=== PATIENT | female | born 1950 | race Caucasian/White ===

== ENCOUNTER 2018-07-25 08:24 | Day surgery (SDC) | payer MEDICARE, OTHER, SELFPAY ==
--- NOTE | 2018-07-25 | AXNB_PTH ---
PATIENT: DAVIS NIXON LOC: [facility] [place] U#:[id number] AGE/SX: 67/F ROOM: RE07/25/[address]: Dr. Helen Cervantes MD : 1950 BED: DIS: 07/25/2018 SPEC #: [id number] RECD: 07/25/18 12:05 STATUS: JAMMIE LUL #: [id number] MARILIN: 07/25/18 00:[address]: Helen Cervantes DEPT: SURGICAL PATHOLOGY RECD BY: Jayda Jacob ENTERED: 07/25/18 12:33 SP TYPE: AX NODE BX OTHR DR: Dr. Marla Ling MD Tissues: A - Axillary lymph node, NOS B - Right breast, NOS Procedures: Frozen Section (charge) Surgery Specimen Level IV Frozen (no charge) HEADER OPERATION: Right breast biopsy after wire localization, right axillary biopsy PRE-OP DIAGNOSIS: Right upper outer quadrant breast carcinoma TISSUE SUBMITTED: A - Right axillary sentinel lymph node for frozen section, B - Right breast lump to mammography first then pathology to identify margins, one long suture - lateral, one short suture - superior, two short sutures - posterior FROZEN SECTION DIAGNOSIS A. Right axillary sentinel lymph nodes, biopsy: Three out of three lymph nodes negative for carcinoma. AM:sesar 07/25/18 Case has been reviewed in consultation with Dr. Del Valle who concurs with the above diagnosis. IDC:SJ MICROSCOPIC DIAGNOSIS A. Right axillary sentinel lymph nodes, biopsy: Three out of three lymph nodes negative for carcinoma. See comment. B. Right breast, lumpectomy: Invasive ductal carcinoma. See cancer checklist below. AM:essar 07/28/18 COMMENT A. Immunohistochemistry ([id number]) supports the above diagnosis. B. INVASIVE BREAST CANCER SUMMARY: Specimen: Partial breast Procedure: Excision with wire guidance Specimen integrity: Single intact specimen. Specimen size: 6 x 5 x 2.5 cm Specimen laterality: Right breast Invasive tumor size: 7 x 6 x 5 mm Tumor focality: Single focus of invasive carcinoma Macroscopic and Microscopic extent of tumor: Skin: Not present Nipple: Not present Skeletal muscle: Not present Histologic type of invasive carcinoma: Invasive ductal carcinoma Histologic Grade ([place] grade): Glandular/tubular differentiation score: 1 Nuclear pleomorphism score: 3 Mitotic count score: 1 Overall grade: Grade 1 (total score of 5) Margins: Uninvolved by invasive carcinoma. Distance from closest (superior) margin: 6 mm Lymph-Vascular invasion: Not identified Dermal lymph-vascular invasion: Not applicable Ductal carcinoma in situ (DCIS): Not present Lobular carcinoma in situ (LCIS): Not present Lymph nodes: Number of sentinel lymph nodes examined - 3 Total number of lymph nodes examined (sentinel and nonsentinel) - 3 No evidence of macrometastases, micrometastases or isolated tumor cells. See specimen A Microcalcifications: Present and associated with carcinoma. Treatment effect: Unknown Additional pathologic findings: Changes consistent with previous biopsy, focal intraductal hyperplasia without atypia and mild fibrocystic change. Ancillary studies: Previously performed on same tumor ([id number],[facility]). ER: 90%, moderate to strong OK: 90%, moderate to strong Her2 martinez: Negative (IHC, ERBB2) PATHOLOGIC STAGE: pT1b N0(sn) Mx The above summary is in compliance with [employer] [place] [employer] (CAP) Cancer Protocols Checklist and [place] Joint Committee on Cancer (AJCC), Staging Manual, 8th Ed. Case has been reviewed in consultation with Dr. Del Valle who concurs with the above diagnosis. IDC:SJ MICROSCOPIC DESCRIPTION Slides are reviewed. GROSS DESCRIPTION A - Received fresh for frozen section consultation labeled with the patient's name is a specimen designated right axillary sentinel lymph node. The specimen consists of an irregular fragment of luna-yellow fibrofatty tissue measuring 3 x 2 x 1.2 cm. Dissection reveals three nodules resembling lymph nodes ranging in size from 1.5 to 2.3 cm in greatest dimension. The nodules are submitted in their entirety for frozen section consultation in two blocks as follows: 1 - one lymph node, 2 - two lymph nodes. / AM: 07/25/18 B - Received fresh for OR consultation labeled with the patient's name is a specimen designated right breast lumpectomy. The specimen consists of an irregular fragment of luna-yellow fibrofatty tissue measuring 6 x 5 x 2.5 cm and weighing 34 gm. The specimen contains two metallic wires. The specimen is differentially inked as follows: anterior - yellow, posterior - black, superior - blue, inferior - green, medial - red and lateral - orange. Serial sections reveal a small blood-filled biopsy cavity with surrounding fibrous nodule measuring 7 mm in greatest dimension. The biopsy cavity contains a metallic tracer clip. This nodule is located 6 mm from its closest (superior) margin of excision. The size of the nodule in its proximity to the closest margin is conveyed to the surgeon intraoperatively. The specimen is left for additional fixation. / AM: 07/25/18 Fire Crew Worker sections are submitted in nine cassettes as follows: 1 & 2 - perpendicular inked margins, 3 & 4 - tumor, 5-9 - technical account representative sections of uninvolved breast parenchyma adjacent to and away from tumor. / AM: 07/27/18 TC:0 CPT: 01652 x2, 53179
--- NOTE | 2018-07-25 | IMM_PTH ---
PATIENT: DAVIS NIXON LOC: [facility] [place] U#:[id number] AGE/SX: 67/F ROOM: RE07/25/[address]: Dr. Helen Cervantes MD : 1950 BED: DIS: 07/25/2018 SPEC #: [id number] RECD: 07/28/18 12:37 STATUS: JAMMIE REQ #: [id number] MARILIN: 07/25/18 00:[address]: Helen Cervantes DEPT: IMMUNOHISTOCHEMISTRY RECD BY: Jayda Jacob ENTERED: 07/28/18 12:38 SP TYPE: IMMUNO OTHR DR: Dr. Marla Ling MD Tissues: A - Axillary lymph node, NOS Procedures: CK7 (add) Pankeratin (initial) Pankeratin (add) PHYSICIAN & INSTITUTION [place] [address] SPECIMEN INFORMATION: Tissue Source: A - Right axillary sentinel lymph nodes, biopsy Clinical Info: Right upper outer quadrant breast CA Specimen Number: [id number] A1 & A2 CPT code: 32041, 52546 x3 METHODOLOGY: Deparaffinized sections of prefer/formalin-fixed tissue or PAP/DQ stained slides are incubated with monoclonal/polyclonal antibodies/oligonucleotide probes. Localization is made via biotin free immunoperoxidase method. Appropriate controls are performed and reacted as expected. Results on target cell population are indicated in the following table: RESULTS: ANTIBODY / CLONE RESULT Block A1 AE1-3 (AE1/AE3/PCK26) negative CK7 (OV-TL12/30) negative Block A2 AE1-3 (AE1/AE3/PCK26) negative CK7 (OV-TL12/30) negative These tests were developed and their performance characteristics determined by [facility]. They may not have been cleared or approved by the U.S. Food and Drug Administration. The FDA has determined that such clearance or approval is not necessary. INTERPRETATION: A. Right axillary sentinel lymph nodes, biopsy: Three out of three lymph nodes negative for carcinoma. AM:sesar 07/28/18
[2018-07-25 08:51] VITALS: BP 161/90; PULSE 97; RESP 18; TEMP 36.2; O2SAT 95; BMI 26.2
--- NOTE | 2018-07-25 09:39 | BI_ITS ---
SURGICAL BREAST SPECIMEN RADIOGRAPH CLINICAL: Document presence of tissue clip marker in biopsy specimen. FINDINGS: Specimen shows presence of tissue clip marker. Electronically Signed: Cole Danielle MD at 13:49 EST Tel [phone], Service support , BI/Breast Biopsy Specimen
[2018-07-25] MEDS: Cefazolin 2 GM in 0.9% Normal Saline 100 ML IV (11:20)
--- NOTE | 2018-07-25 11:20 | PCM.IMDPSTOP ---
Immediate Post-Op Note Date of Procedure: 07/25/18 Primary Surgeon/Physician: Helen Cervantes MD laborer golf course: Andree Bazan Pre-Operative Diagnosis: right breast cancer - upper outer quadrant Post-Operative Diagnosis: same Surgery/Procedure Performed:: right breast lumpectomy via wire localization, right axillary sentinel lymph node biopsy via blue dye technique Description of Surgical Findings:: three out three lymph nodes negative, second marker clip not in specimen but radiograph shows not retained FB, tumor in specimen Estimated Blood Loss: 10 ml Specimen's removed: right breast axillary lymph yolanda tissue, right breast lumpectomy Type of Anesthesia:: General ASA Class: ASA2 Mod Systematic Disease - Admit VTE Documentation VTE Present on Admission: Yes VTE Mechan Device Prophylaxis: SCD's
--- NOTE | 2018-07-25 11:22 | PCM.DC.BS ---
Discharge Diet: No Restrictions Discharge Activity: Return to Normal Activity, May not drive while taking narcotic pain medications. Lifting Restrictions: no lifting greater than 5 pounds with right arm until further notice Additional Activity Instructions:: Leave dressings intact. May get wet in shower. Do not soak - no tub baths/swimming. Wear bra during day Allergies/Adverse Reactions: Allergies naproxen [From Aleve] Allergy (Verified 07/20/18 14:03) Swelling Medications to take at Discharge Ascorbic Acid [Vitamin C] 500 mg PO DAILY 07/20/18 Atorvastatin Calcium [Lipitor] 10 mg PO QHS 07/20/18 Calcium Carbonate [Calcium] 600 mg PO DAILY 07/20/18 Cholecalciferol (Vitamin D3) [Vitamin D3] 2 tab PO DAILY 07/20/18 Famotidine [Pepcid AC] 20 mg PO PRN PRN 07/20/18 Multivitamin [Daily Vitamin Formula] 1 each PO DAILY 07/20/18 Primary Care Physician: Marla Ling MD [Primary Care Provider] - Please Follow Up With: Helen Cervantes MD - call When: to be seen in a week, please call for date and time, thank you
--- NOTE | 2018-07-25 11:23 | PCM.OPRPT ---
Report of Operation Date of Procedure: 07/25/18 Pre-Operative Diagnosis: right breast cancer - upper outer quadrant Post-Operative Diagnosis: same - lymph node negative for metastatic disease Surgery/Procedure Performed:: right breast lumpectomy via wire localization, right axillary sentinel lymph node biopsy via blue dye technique Description of Surgical Findings:: three out of three sentinel lymph nodes negative for cancer, specimen mammograms show one of the two clips present in the specimen - pathology reveals 7mm nodule - margins are clear, radiograph reveals no retained clip in the breast wound cavity car dryer: Andree Bazan Type of Anesthesia:: General Anesthesiologist: Chanel Em Specimen's removed: right breast axillary lymph yolanda tissue, right breast lumpectomy Estimated Blood Loss (mL): 10 Fluids Replaced: 1300 ml RL Description of Procedure: After informed consent was given, the patient was brought into the Breast Stereotactic Radiology suite and placed in the prone position on the Zapien stereotactic table. The patient?s right breast was placed in the opening at the head of the table. A manufacturing maintenance technician compression mammogram was then obtained in the lateral view. The marker clip that was previously placed was identified. Stereo pictures of the lesion were then taken for XYZ coordinates. The Kopans needle was then positioned where it would be entering into the patient?s breast. The skin at this site was then cleansed with a surgical skin preparation. The skin and subcutaneous tissues at this site were then infiltrated with 1% xylocaine. The Kopans needle was then positioned into the patient?s breast at the proper coordinates of depth. A manufacturing maintenance technician film was obtained which revealed the wire in proper position. Another marker clip was present and therefore an additional Kopan's needle was placed as above. The patient was then placed in the supine position and the wires were taped into place. A unilateral mammogram in the CC and MLO view were then taken for use in the OR. The patient tolerated this portion of the procedure well and was brought to the AC awaiting surgery in the OR. The patient was then brought to the Operating Room and placed on the operating table in the supine position. Appropriate time out protocol was followed. She was then placed under general anesthesia. 2 cc of lymphozurin diluted 50/50 blue dye was then injected into the periareolar area and around the biopsy cavity with a 25 g needle. Gentle massage was then done for a few minutes. The patient's right chest and neck area was then prepped with a sterile surgical skin preparation and appropriate sterile surgical drapes were placed. A skin incision was made in the inferior portion of the hair bearing area of the right axilla. It was carried through to the subcutaneous tissues using electrocautery. Any hemorrhage was controlled with electrocautery. A Weitlaner retractor was used for increased operative exposure. The blue lymphatic vessels were then followed by blunt dissection until blue colored lymph yolanda tissue was identified. These were from the surrounding tissue by blunt dissection and the vascular pedicles ligated with ligaclips. The lymph tissue was then forwarded to pathology for frozen section. Pathology revealed that three lymph nodes were identifed - all negative for metastatic cancer. Ligaclips were used to ligate the vessels and lymphatics. Jan was applied into the axillary cavity. The deep tissues were approximated with 2-0 vicryl suture. The skin edges were reapproximated with 3-0 vicryl suture in a horizontal mattress fashion and then further closed with running 4-0 monocryl in a subcuticular fashion. Dermibond then placed to reinforce the skin closure and proper sterile dressings were applied. The right breast quadrantectomy was then done. A wire had already been placed in the stereotactic biopsy room in the radiology department as described above. The skin and subcutaneous tissues at the site of the breast lesion was then infiltrated with local anesthetic. A transverse curvilinear skin incision was then made with a 15 blade scalpel in the upper outer quadrant of the patient's right breast and carried down through to the subcutaneous tissues. Hemostasis was controlled with electrocautery. The wires were then palpated out. The breast tissue surrounding the wires was then carefully palpated out and from the surrounding tissues using electrocautery. The breast tissue, once from the breast, was then forwarded to the radiology department, where a specimen mammogram revealed that the lesion was within the specimen, one of the clips was in the specimen. A radiograph was obtained in the operating room, no retained metallic clip was noted in the breast tissue. The breast tissue was forwarded to pathology for analysis. Pathology review revealed that the closest margin was clear. There was a 7mm nodule noted in the specimen. The wound cavity was carefully examined. No further suspicious tissue was palpated or visualized. Hemostasis was carefully controlled with electrocautery. The subdermal tissues were then approximated with vicryl suture. The incision was then reapproximated close using running monocryl suture. Dermibond was then placed to reinforce the skin closures. A sterile dressing was then applied. The patient was then brought to the Recovery Room in stable condition. - Complications none noted - Admit VTE Documentation VTE Present on Admission: Yes VTE Mechan Device Prophylaxis: SCD's
--- NOTE | 2018-07-25 11:26 | OP.PCM_ITS ---
Report of Operation Date of Procedure: 07/25/18 Pre-Operative Diagnosis: right breast cancer - upper outer quadrant Post-Operative Diagnosis: same - lymph node negative for metastatic disease Surgery/Procedure Performed:: right breast lumpectomy via wire localization, rig ht axillary sentinel lymph node biopsy via blue dye technique Description of Surgical Findings:: three out of three sentinel lymph nodes negative for cancer, specimen mammograms show one of the two clips present in the specimen - pathology reveals 7mm nodule - margins are clear, radiograph reveals no retained clip in the breast wound cavity coupler: Andree Bazan Type of Anesthesia:: General Anesthesiologist: Chanel Em Specimen's removed: right breast axillary lymph yolanda tissue, right breast lumpectomy Estimated Blood Loss (mL): 10 Fluids Replaced: 1300 ml RL Description of Procedure: After informed consent was given, the patient was brought into the Breast Stereotactic Radiology suite and placed in the prone position on the Zapien stereotactic table. The patient?s right breast was placed in the opening at the head of the table. A syrup mixer assistant compression mammogram was then obtained in the lateral view. The marker clip that was previously placed was identified. Stereo pictures of the lesion were then taken for XYZ coordinates. The Kopans needle was then positioned where it would be entering into the patient?s breast. The skin at this site was then cleansed with a surgical skin preparation. The skin and subcutaneous tissues at this site were then infiltrated with 1% xylocaine. The Kopans needle was then positioned into the patient?s breast at the proper coordinates of depth. A syrup mixer assistant film was obtained which revealed the wire in proper position. Another marker clip was present and therefore an additional Kopan's needle was placed as above. The patient was then placed in the supine position and the wires were taped into place. A unilateral mammogram in the CC and MLO view were then taken for use in the OR. The patient tolerated this portion of the procedure well and was brought to the AC awaiting surgery in the OR. The patient was then brought to the Operating Room and placed on the operating table in the supine position. Appropriate time out protocol was followed. She was then placed under general anesthesia. 2 cc of lymphozurin diluted 50/50 blue dye was then injected into the periareolar area and around the biopsy cavity with a 25 g needle. Gentle massage was then done for a few minutes. The patient's right chest and neck area was then prepped with a sterile surgical skin preparation and appropriate sterile surgical drapes were placed. A skin incision was made in the inferior portion of the hair bearing area of the right axilla. It was carried through to the subcutaneous tissues using electrocautery. Any hemorrhage was controlled with electrocautery. A Weitlaner retractor was used for increased operative exposure. The blue lymphatic vessels were then followed by blunt dissection until blue colored lymph yolanda tissue was identified. These were from the surrounding tissue by blunt dissection and the vascular pedicles ligated with ligaclips. The lymph tissue was then forwarded to pathology for frozen section. Pathology revealed that three lymph nodes were identifed - all negative for metastatic cancer. Ligaclips were used to ligate the vessels and lymphatics. Jan was applied into the axillary cavity. The deep tissues were approximated with 2-0 vicryl suture. The skin edges were reapproximated with 3-0 vicryl suture in a horizontal mattress fashion and then further closed with running 4-0 monocryl in a subcuticular fashion. Dermibond then placed to reinforce the skin closure and proper sterile dressings were applied. The right breast quadrantectomy was then done. A wire had already been placed in the stereotactic biopsy room in the radiology department as described above. The skin and subcutaneous tissues at the site of the breast lesion was then infiltrated with local anesthetic. A transverse curvilinear skin incision was then made with a 15 blade scalpel in the upper outer quadrant of the patient's right breast and carried down through to the subcutaneous tissues. Hemostasis was controlled with electrocautery. The wires were then palpated out. The breast tissue surrounding the wires was then carefully palpated out and from the surrounding tissues using electrocautery. The breast tissue, once from the breast, was then forwarded to the radiology department, where a specimen mammogram revealed that the lesion was within the specimen, one of the clips was in the specimen. A radiograph was obtained in the operating room, no retained metallic clip was noted in the breast tissue. The breast tissue was forwarded to pathology for analysis. Pathology review revealed that the closest margin was clear. There was a 7mm nodule noted in the specimen. The wound cavity was carefully examined. No further suspicious tissue was palpated or visualized. Hemostasis was carefully controlled with electrocautery. The subdermal tissues were then approximated with vicryl suture. The incision was then reapproximated close using running monocryl suture. Dermibond was then placed to reinforce the skin closures. A sterile dressing was then applied. The patient was then brought to the Recovery Room in stable condition. - Complications none noted - Admit VTE Documentation VTE Present on Admission: Yes VTE Mechan Device Prophylaxis: SCD's
[2018-07-25] MEDS: Isosulfan Blue 1% 5 ML Vial (11:34)
[2018-07-25] MEDS: Bupiv/Epi 0.5% Mpf 30 ML Vial (11:42)
--- NOTE | 2018-07-25 13:05 | RAD_ITS ---
STUDY: X-RAY CHEST REASON FOR EXAM: Female, 67 years old. Intraoperative evaluation for possible radiopaque foreign body. TECHNIQUE: Single AP portable view of the chest. COMPARISON: None. FINDINGS: The lungs are clear and expanded. There is no demonstrated pleural abnormality. Normal size heart. Normal mediastinum and vickey. Normal visualized pulmonary arteries. Normal visualized aortic arch and descending thoracic aorta. Normal visualized thoracic spine. Normal visualized ribs, clavicles, and shoulders. There is no demonstrated abnormality of the visualized soft tissue structures of the upper abdomen. RAD/Chest 1 View (Portable) IMPRESSION: No radiopaque foreign body is seen. Electronically Signed: Cole Danielle MD at 13:54 EST Tel [phone], Service support ,
[2018-07-25 13:49] VITALS: BP 126/73; BP 161/90; PULSE 108; RESP 15; TEMP 36.3; O2SAT 94
[2018-07-25 14:00] VITALS: BP 134/73; BP 161/90; PULSE 107; RESP 16; O2SAT 93
[2018-07-25 14:15] VITALS: BP 135/86; BP 161/90; PULSE 105; RESP 16; O2SAT 94
[2018-07-25 14:24] VITALS: BP 128/83; BP 161/90; PULSE 106; RESP 16; O2SAT 96
[2018-07-25 15:30] VITALS: BP 149/91; BP 161/90; PULSE 96; RESP 16; TEMP 36.1; O2SAT 96
== END 2018-07-25 15:45 | disposition home or self-care (01) ==
LOC: SDC 08:25 → AC 08:28
PROVIDERS: Family Provider Internal Medicine; PCP Internal Medicine; Referring Provider Surgery; Visit Provider Surgery
PROC: (CPT 19301; principal; 2018-07-25 10:15)
DX: C50.211 Malignant neoplasm of upper-inner quadrant of right female breast (principal); E78.5 Hyperlipidemia, unspecified; F17.200 Nicotine dependence, unspecified, uncomplicated
CPT/HCPCS: 19301; 38525; 38900; 19281; 71045; 76098; 88305; 88331; 88341; 88342; J7120; J2405; J3490; Q9968